=== PATIENT | male | born 2000 | race Asian ===

== ENCOUNTER 2018-02-15 21:58 | Emergency (ER) | payer BC ==
[~2018-02-15] VITALS: Ht 170.2 cm; Wt 60.0 kg
[2018-02-15] MEDS ORDERED: SODIUM CHLORIDE 0.9% 1,000 ML IV ONE (22:30)
[2018-02-15] MEDS ORDERED: FAMOTIDINE 20MG TABLET PO ONE (22:30)
[2018-02-15] MEDS ORDERED: METHYLPREDNISOLONE SOD SUCC 125 MG/2 ML VIAL IV ONE (22:30)
[2018-02-16 01:40] VITALS: BP 135/85
== END 2018-02-16 02:20 | disposition home or self-care (01) ==
LOC: ER 22:15
DX: T78.40XA Allergy, unspecified, initial encounter (principal); X58.XXXA Exposure to other specified factors, initial encounter; Z91.018 Allergy to other foods
CPT/HCPCS: 96361; 96374; 99291; J2930; J7030